=== PATIENT | female | born 1990 | race Hispanic/Latino ===

== ENCOUNTER 2023-02-14 04:27 | Emergency (ER) | payer OTHER ==
[~2023-02-14] VITALS: Ht 167.6 cm; Wt 57.6 kg
[2023-02-14] MEDS ORDERED: FENTANYL CITRATE PF 50 MCG/1 ML 2ML VIAL IVP ONE (05:00)
[2023-02-14] MEDS ORDERED: GABAPENTIN 300 MG CAPSULE PO SCH (05:00)
[2023-02-14] MEDS ORDERED: CYCLOBENZAPRINE HCL 10 MG TABLET PO ONE (05:00)
[2023-02-14] MEDS ORDERED: KETOROLAC 30MG VIAL (30MG/ML) IVP ONE (05:00)
[2023-02-14] MEDS ORDERED: DEXAMETHASONE SOD PHOSPHATE 4 MG/ML 1ML VIAL IVP ONE (05:00)
[2023-02-14 05:02] VITALS: BP 118/73; PULSE 68; RESP 20; O2SAT 96
[2023-02-14] MEDS ORDERED: PRED20TA3 PO (06:54)
[2023-02-14] MEDS ORDERED: IBUP-1493 PO (06:54)
[2023-02-14] MEDS ORDERED: GABA300C PO (06:54)
[2023-02-14] MEDS ORDERED: CYCL-309 PO (06:54)
[2023-02-14 08:18] LABS: AMPHET/METH SCREEN,URINE NEGATIVE (NEGATIVE); BARBITURATE SCREEN, URINE NEGATIVE (NEGATIVE); BENZODIAZEPINES SCREEN,URINE NEGATIVE (NEGATIVE); CANNABINOID SCREEN,URINE NEGATIVE (NEGATIVE); COCAINE SCREEN,URINE NEGATIVE (NEGATIVE); OPIATE SCREEN,URINE NEGATIVE (NEGATIVE); PHENCYCLIDINE SCREEN,URINE NEGATIVE (NEGATIVE)
== END 2023-02-14 08:05 | disposition home or self-care (01) ==
LOC: EDH 04:27
DX: M54.9 Dorsalgia, unspecified (principal); R06.02 Shortness of breath
CPT/HCPCS: 99284; 96374; 96375; 80305; 84703; 36415; 72100; 72072; J1100; J3010; J1885